=== PATIENT | female | born 1975 | race Caucasian/White ===

== ENCOUNTER 2024-04-03 10:36 | Day surgery (SDC) | payer OTHER ==
[~2024-04-03 10:36] MED LIST: Lactated Ringers 1,000 ML IV SCH
[2024-04-03] MEDS: Lactated Ringers 1,000 ML IV SCH (10:49)
[2024-04-03] MEDS ORDERED: fentaNYL 100 MCG/2 ML SDV ONE ×2 (10:50→11:32)
[2024-04-03] MEDS ORDERED: Propofol 200 MG/20 ML SDV ONE ×2 (10:50→11:33)
== END 2024-04-03 12:30 | disposition home or self-care (01) ==
LOC: VM.SDS 10:36
PROVIDERS: ATTEND Family Medicine
DX: Z12.11 Encounter for screening for malignant neoplasm of colon (principal); D12.0 Benign neoplasm of cecum; D12.6 Benign neoplasm of colon, unspecified; K62.1 Rectal polyp; E03.9 Hypothyroidism, unspecified; F17.210 Nicotine dependence, cigarettes, uncomplicated; Z79.890 Hormone replacement therapy; Z79.899 Other long term (current) drug therapy; Z88.2 Allergy status to sulfonamides
CPT/HCPCS: 00811; J2704; J3010; J7120